=== PATIENT | female | born 1950 | race Caucasian/White ===

== ENCOUNTER 2017-04-14 08:46 | Emergency (ER) | payer MEDICARE, BC ==
[2017-04-14] MEDS: ONDANSETRON 4 MG INJ IV (09:05)
[2017-04-14] MEDS: HYDROmorphONE 1 MG/ML SYG IV ×2 (09:06→12:50)
[2017-04-14 09:22] LABS: ADD MAN DIFF? NO
[2017-04-14 09:26] LABS: BASOPHIL # 0.1 10^3/ul (0.0-0.1); EOSINOPHILS # 0.1 10^3/ul (0.0-0.5); EOSINOPHILS % 0.8 % (0.0-7.0); HEMATOCRIT 40.2 % (37.0-47.0); HEMOGLOBIN 12.9 g/dl (12.0-16.0); LYMPHOCYTES # 2.1 10^3/ul (0.8-2.9); LYMPHOCYTES % 23.4 % (15.0-51.0); MEAN CORPUSCULAR HEMOGLOBIN 27.9 pg (29.0-33.0); MEAN CORPUSCULAR HGB CONC 32.1 g/dl (32.0-37.0); MEAN CORPUSCULAR VOLUME 86.8 fl (82.0-101.0); MEAN PLATELET VOLUME 9.5 fl (7.4-10.4); MONOCYTE # 0.7 10^3/ul (0.3-0.9); MONOCYTES % 7.8 % (0.0-11.0); NEUTROPHIL # 5.9 10^3/ul (1.6-7.5); NEUTROPHILS % 66.4 % (39.0-77.0); PLATELET COUNT 354 10^3/UL (140-415); RED BLOOD COUNT 4.63 10^6/ul (4.20-5.40); RED CELL DISTRIBUTION WIDTH 13.5 % (11.5-14.5)
[2017-04-14 09:26] LABS: WHITE BLOOD COUNT 8.9 10^3/ul (4.8-10.8)
[2017-04-14 09:46] LABS: ALANINE AMINOTRANSFERASE 26 IU/L (13-69); ALBUMIN 4.3 g/dl (3.3-4.9); ALBUMIN/GLOBULIN RATIO 0.97; ALKALINE PHOSPHATASE 121 IU/L (42-121); ANION GAP 13 (8-16); ASPARTATE AMINO TRANSFERASE 40 IU/L (15-46); BILIRUBIN,INDIRECT 0.3 mg/dl (0-1.1); BILIRUBIN,TOTAL 0.3 mg/dl (0.2-1.3); BLOOD UREA NITROGEN 12 mg/dl (7-20); CARBON DIOXIDE 30 mmol/L (21-31); CHLORIDE 105 mmol/L (97-110); CREATININE 0.81 mg/dl (0.44-1.00); GLUCOSE 106 mg/dl (70-220); SODIUM 144 mmol/L (135-144); TOTAL PROTEIN 8.7 g/dl (6.1-8.1)
[2017-04-14 09:56] LABS: INR 2.11; PROTIME 24.2 Sec (11.9-14.9); PT RATIO 1.9
[2017-04-14 09:58] LABS: PARTIAL THROMBOPLASTIN TIME 63.1 Sec (25.0-35.0)
[2017-04-14 10:05] LABS: TROPONIN-I < 0.012 ng/ml (0.00-0.12)
[2017-04-14] MEDS: SOD CHLORIDE 0.9% 100 ML ×2 (11:20→11:22)
[2017-04-14] MEDS: IOHEXOL 100 ML ×2 (11:21→11:22)
== END 2017-04-14 13:35 | disposition home or self-care (01) ==
LOC: E/R 08:46
DX: C34.90 Malignant neoplasm of unspecified part of unspecified bronchus or lung (principal); R07.9 Chest pain, unspecified; Z79.01 Long term (current) use of anticoagulants
CPT/HCPCS: 36415; 71045; 71275; 80053; 84484; 85025; 85610; 85730; 93005; 93970; 96374; 96375; 96376; 99285-25

== ENCOUNTER 2017-04-26 06:05 | Inpatient (IN) | payer MEDICARE, BC ==
[2017-04-26] MEDS: ONDANSETRON 4 MG INJ IV ×2 (06:11→19:56)
[2017-04-26] MEDS: HYDROmorphONE 1 MG/ML SYG IV (06:11)
[2017-04-26] MEDS: SOD CHLORIDE 0.9% 1,000 ML IV (06:11)
[2017-04-26 07:41] LABS: ADD MAN DIFF? NO
[2017-04-26 07:49] LABS: WHITE BLOOD COUNT 9.4 10^3/ul (4.8-10.8)
[2017-04-26 07:49] LABS: BASOPHIL # 0.1 10^3/ul (0.0-0.1); BASOPHILS % 0.5 % (0.0-2.0); EOSINOPHILS % 0.3 % (0.0-7.0); HEMATOCRIT 34.5 % (37.0-47.0); HEMOGLOBIN 10.8 g/dl (12.0-16.0); LYMPHOCYTES # 0.7 10^3/ul (0.8-2.9); LYMPHOCYTES % 7.6 % (15.0-51.0); MEAN CORPUSCULAR HEMOGLOBIN 26.7 pg (29.0-33.0); MEAN CORPUSCULAR HGB CONC 31.3 g/dl (32.0-37.0); MEAN CORPUSCULAR VOLUME 85.2 fl (82.0-101.0); MEAN PLATELET VOLUME 9.4 fl (7.4-10.4); MONOCYTE # 0.7 10^3/ul (0.3-0.9); MONOCYTES % 7.7 % (0.0-11.0); NEUTROPHIL # 7.8 10^3/ul (1.6-7.5); NEUTROPHILS % 83.6 % (39.0-77.0); PLATELET COUNT 329 10^3/UL (140-415); RED BLOOD COUNT 4.05 10^6/ul (4.20-5.40); RED CELL DISTRIBUTION WIDTH 13.3 % (11.5-14.5)
[2017-04-26 08:04] LABS: LACTIC ACID 1.1 mmol/L (0.5-2.0)
[2017-04-26 08:07] LABS: ALANINE AMINOTRANSFERASE 27 IU/L (13-69); ALBUMIN 3.6 g/dl (3.3-4.9); ALKALINE PHOSPHATASE 120 IU/L (42-121); ANION GAP 17 (8-16); ASPARTATE AMINO TRANSFERASE 24 IU/L (15-46); BLOOD UREA NITROGEN 14 mg/dl (7-20); CALCIUM 9.8 mg/dl (8.4-10.2); CARBON DIOXIDE 30 mmol/L (21-31); CHLORIDE 100 mmol/L (97-110); CREATININE 0.89 mg/dl (0.44-1.00); GLUCOSE 135 mg/dl (70-220); LIPASE 65 U/L (23-300); POTASSIUM 4.2 mmol/L (3.5-5.1); SODIUM 143 mmol/L (135-144); TOTAL PROTEIN 7.2 g/dl (6.1-8.1)
[2017-04-26 08:10] LABS: INR 2.18; PROTIME 24.8 Sec (11.9-14.9); PT RATIO 1.9
[2017-04-26 08:11] LABS: PARTIAL THROMBOPLASTIN TIME 59.1 Sec (25.0-35.0)
[2017-04-26 08:18] LABS: TROPONIN-I < 0.012 ng/ml (0.00-0.12)
[2017-04-26] MEDS ORDERED: SOD CHLORIDE 0.9% 100 ML (08:18)
[2017-04-26] MEDS ORDERED: IOHEXOL 100 ML (08:18)
[2017-04-26] MEDS ORDERED: NITROGLYCERIN (SL) 0.4 MG TAB (08:48)
[2017-04-26] MEDS: ALBUTEROL 0.5% (NEB) 2.5 MG/0.5 ML AMP INH (09:03)
[2017-04-26] MEDS ORDERED: FUROSEMIDE 40 MG INJ (09:04)
[2017-04-26] MEDS: FUROSEMIDE 40 MG INJ IV (10:09)
[2017-04-26] MEDS: morphine 2 MG INJ IV (10:09)
[2017-04-26] MEDS: NITROGLYCERIN (SL) 0.4 MG TAB SL (10:09)
[2017-04-26] MEDS: NITROGLYCERIN 2% 1 GM OINT PKT TD (10:10)
[2017-04-26 10:19] LABS: ADD UMIC YES; UR ASCORBIC ACID NEGATIVE (NEGATIVE); UR BACTERIA FEW /HPF (NONE SEEN); UR BILIRUBIN (Dip) NEGATIVE (NEGATIVE); UR BLOOD (Dip) 2+ mg/dL (NEGATIVE); UR CLARITY CLEAR (CLEAR); UR COLOR STRAW (YELLOW); UR GLUCOSE (Dip) NEGATIVE (NEGATIVE); UR KETONES (Dip) NEGATIVE (NEGATIVE); UR LEUKOCYTE ESTERASE (Dip) NEGATIVE Leu/ul (NEGATIVE); UR MUCUS FEW /HPF (NONE SEEN); UR NITRITE (Dip) NEGATIVE (NEGATIVE); UR RBC 9 /HPF (0-5); UR SPECIFIC GRAVITY (Dip) 1.019 (1.003-1.030); UR TOTAL PROTEIN (Dip) 1+ mg/dl (NEGATIVE); UR UROBILINOGEN (Dip) NEGATIVE (NEGATIVE); UR WBC 1 /HPF (0-5)
[2017-04-26] MEDS: PIPER-TAZO 3.375 GM IV (PMX) 100 ML IVPB ×3 (10:30→22:46)
[2017-04-26 11:16] LABS: LACTIC ACID 1.6 mmol/L (0.5-2.0)
[2017-04-26] MEDS ORDERED: ONDANSETRON 4 MG INJ IV (12:00)
[2017-04-26] MEDS ORDERED: HYDROmorphONE 4 MG TAB PO (12:00)
[2017-04-26] MEDS ORDERED: ACETAMINOPHEN 325 MG TAB PO ×2 (12:00→12:30)
[2017-04-26] MEDS ORDERED: NACL 0.9% 3 ML SYG IV (12:30)
[2017-04-26] MEDS ORDERED: BISACODYL 10 MG SUPP PR (12:30)
[2017-04-26] MEDS: AMLODIPINE 10 MG TAB PO (14:00)
[2017-04-26] MEDS ORDERED: LIDOCAINE 5% PATCH TD (14:00)
[2017-04-26 15:55] LABS: IRON 13 ug/dl (35-150)
[2017-04-26] MEDS: METHYLPREDNISOLONE 40 MG INJ IV (15:55)
[2017-04-26 15:56] LABS: LACTIC ACID 0.9 mmol/L (0.5-2.0)
[2017-04-26 16:05] LABS: % IRON SATURATION 6 % SAT (22-52); TOTAL IRON BINDING CAPACITY 201 ug/dl (241-421)
[2017-04-26] MEDS: SENNA/DOCUSATE NA (8.6MG/50MG) TAB PO ×2 (16:22→20:10)
[2017-04-26] MEDS: ACETAMINOPHEN 1000MG/100ML IV 100 ML IVPB ×2 (16:22→20:00)
[2017-04-26] MEDS: PHYTONADIONE 10 MG/ML INJ IM (18:00)
[2017-04-26] MEDS ORDERED: [UNRECOGNIZED DRUG - OTHER] XX (19:00)
[2017-04-26] MEDS: HYDROmorphONE 0.5 MG/0.5 ML SYG IV (19:56)
[2017-04-26] MEDS: MAGNESIUM HYDROXIDE 30ML CUP PO (20:10)
[2017-04-26] MEDS: NA PHOSPHATE/BIPHOS 133 ML ENEMA PR (20:15)
[2017-04-26] MEDS ORDERED: METHADONE 10 MG TAB PO (21:00)
[2017-04-27] MEDS: ACETAMINOPHEN 1000MG/100ML IV 100 ML IVPB ×4 (02:00→20:55)
[2017-04-27] MEDS: PIPER-TAZO 3.375 GM IV (PMX) 100 ML IVPB ×3 (06:26→21:49)
[2017-04-27] MEDS: PANTOPRAZOLE (EC) 40 MG TAB PO (06:26)
[2017-04-27 07:11] LABS: ADD MAN DIFF? NO; BASOPHILS % 0.3 % (0.0-2.0); HEMATOCRIT 31.5 % (37.0-47.0); HEMOGLOBIN 9.9 g/dl (12.0-16.0); LYMPHOCYTES # 0.7 10^3/ul (0.8-2.9); LYMPHOCYTES % 11.9 % (15.0-51.0); MEAN CORPUSCULAR HGB CONC 31.4 g/dl (32.0-37.0); MEAN CORPUSCULAR VOLUME 86.1 fl (82.0-101.0); MEAN PLATELET VOLUME 9.3 fl (7.4-10.4); MONOCYTE # 0.4 10^3/ul (0.3-0.9); MONOCYTES % 6.2 % (0.0-11.0); NEUTROPHIL # 4.9 10^3/ul (1.6-7.5); NEUTROPHILS % 81.3 % (39.0-77.0); PLATELET COUNT 303 10^3/UL (140-415); RED BLOOD COUNT 3.66 10^6/ul (4.20-5.40); RED CELL DISTRIBUTION WIDTH 13.6 % (11.5-14.5)
[2017-04-27 07:25] LABS: ALBUMIN 3.5 g/dl (3.3-4.9); ANION GAP 14 (8-16); BLOOD UREA NITROGEN 13 mg/dl (7-20); CALCIUM 9.4 mg/dl (8.4-10.2); CARBON DIOXIDE 33 mmol/L (21-31); CHLORIDE 106 mmol/L (97-110); GLUCOSE 128 mg/dl (70-220); MAGNESIUM 2.2 mg/dl (1.7-2.5); PHOSPHORUS 4.7 mg/dl (2.5-4.9); POTASSIUM 4.1 mmol/L (3.5-5.1); SODIUM 149 mmol/L (135-144)
[2017-04-27 07:39] LABS: INR 2.43; PROTIME 27.1 Sec (11.9-14.9); PT RATIO 2.1
[2017-04-27] MEDS: METHYLPREDNISOLONE 40 MG INJ IV (08:51)
[2017-04-27] MEDS: SENNA/DOCUSATE NA (8.6MG/50MG) TAB PO ×2 (08:53→20:52)
[2017-04-27] MEDS: PAROXETINE 20 MG TAB PO (08:57)
[2017-04-27] MEDS ORDERED: NON-FORMULARY/PATIENT OWN MED (Vilazodone Hcl (Viibryd) 40 MG) PO (09:00)
[2017-04-27] MEDS: ONDANSETRON 4 MG INJ IV ×2 (10:07→20:52)
[2017-04-27] MEDS ORDERED: VILAZODONE 20 MG PO (11:00)
[2017-04-27] MEDS: FUROSEMIDE 20 MG INJ IV (11:39)
[2017-04-27] MEDS: PHYTONADIONE 10 MG/ML INJ IM (11:40)
[2017-04-27] MEDS: LIDOCAINE 5% PATCH TD (11:46)
[2017-04-27] MEDS: VILAZODONE 20 MG PO (12:34)
[2017-04-27] MEDS: METOPROLOL (XL) 25 MG TAB PO (13:14)
[2017-04-27] MEDS: AMLODIPINE 10 MG TAB PO (13:18)
[2017-04-28] MEDS: HYDROmorphONE 0.5 MG/0.5 ML SYG IV (00:16)
[2017-04-28] MEDS: ACETAMINOPHEN 1000MG/100ML IV 100 ML IVPB ×4 (02:50→20:14)
[2017-04-28] MEDS: PANTOPRAZOLE (EC) 40 MG TAB PO (06:01)
[2017-04-28] MEDS: PIPER-TAZO 3.375 GM IV (PMX) 100 ML IVPB ×3 (06:01→21:18)
[2017-04-28 06:04] LABS: ADD MAN DIFF? NO
[2017-04-28 06:07] LABS: WHITE BLOOD COUNT 7.5 10^3/ul (4.8-10.8)
[2017-04-28 06:07] LABS: BASOPHILS % 0.5 % (0.0-2.0); EOSINOPHILS % 0.3 % (0.0-7.0); HEMATOCRIT 31.4 % (37.0-47.0); HEMOGLOBIN 10.1 g/dl (12.0-16.0); LYMPHOCYTES # 1.5 10^3/ul (0.8-2.9); LYMPHOCYTES % 19.9 % (15.0-51.0); MEAN CORPUSCULAR HEMOGLOBIN 27.7 pg (29.0-33.0); MEAN CORPUSCULAR HGB CONC 32.2 g/dl (32.0-37.0); MEAN PLATELET VOLUME 9.2 fl (7.4-10.4); MONOCYTE # 0.7 10^3/ul (0.3-0.9); MONOCYTES % 9.3 % (0.0-11.0); NEUTROPHIL # 5.3 10^3/ul (1.6-7.5); NEUTROPHILS % 69.6 % (39.0-77.0); PLATELET COUNT 314 10^3/UL (140-415); RED BLOOD COUNT 3.65 10^6/ul (4.20-5.40); RED CELL DISTRIBUTION WIDTH 13.7 % (11.5-14.5)
[2017-04-28 06:27] LABS: INR 1.48; PROTIME 18.2 Sec (11.9-14.9); PT RATIO 1.4
[2017-04-28 07:05] LABS: ALBUMIN 3.3 g/dl (3.3-4.9); ANION GAP 12 (8-16); BLOOD UREA NITROGEN 13 mg/dl (7-20); CALCIUM 9.4 mg/dl (8.4-10.2); CARBON DIOXIDE 35 mmol/L (21-31); CHLORIDE 104 mmol/L (97-110); CREATININE 0.89 mg/dl (0.44-1.00); GLUCOSE 104 mg/dl (70-220); MAGNESIUM 2.1 mg/dl (1.7-2.5); PHOSPHORUS 3.2 mg/dl (2.5-4.9); POTASSIUM 3.7 mmol/L (3.5-5.1); SODIUM 147 mmol/L (135-144)
[2017-04-28] MEDS: PAROXETINE 20 MG TAB PO (09:00)
[2017-04-28] MEDS: METHYLPREDNISOLONE 40 MG INJ IV (09:28)
[2017-04-28] MEDS: FUROSEMIDE 20 MG INJ IV (09:29)
[2017-04-28] MEDS: AMLODIPINE 10 MG TAB PO (09:29)
[2017-04-28] MEDS: SENNA/DOCUSATE NA (8.6MG/50MG) TAB PO ×2 (09:29→20:13)
[2017-04-28] MEDS: METOPROLOL (XL) 25 MG TAB PO (09:30)
[2017-04-28] MEDS: VILAZODONE 20 MG PO (09:31)
[2017-04-28] MEDS: LIDOCAINE 5% PATCH TD (09:34)
[2017-04-28] MEDS: ALPRAZOLAM 0.25 MG TAB PO (10:30)
[2017-04-29] MEDS: HYDROmorphONE 0.5 MG/0.5 ML SYG IV ×2 (00:33→03:45)
[2017-04-29] MEDS: ONDANSETRON 4 MG INJ IV ×2 (00:37→07:38)
[2017-04-29] MEDS: ACETAMINOPHEN 1000MG/100ML IV 100 ML IVPB ×4 (01:56→19:54)
[2017-04-29] MEDS: MAGNESIUM HYDROXIDE 30ML CUP PO (03:49)
[2017-04-29] MEDS: PANTOPRAZOLE (EC) 40 MG TAB PO (05:26)
[2017-04-29] MEDS: PIPER-TAZO 3.375 GM IV (PMX) 100 ML IVPB ×3 (05:27→22:23)
[2017-04-29] MEDS: METHYLPREDNISOLONE 40 MG INJ IV (08:39)
[2017-04-29] MEDS: FUROSEMIDE 20 MG INJ IV (08:39)
[2017-04-29] MEDS: METOPROLOL (XL) 25 MG TAB PO (08:40)
[2017-04-29] MEDS: VILAZODONE 20 MG PO (08:40)
[2017-04-29] MEDS: AMLODIPINE 10 MG TAB PO (08:41)
[2017-04-29] MEDS: SENNA/DOCUSATE NA (8.6MG/50MG) TAB PO ×2 (08:41→19:54)
[2017-04-29] MEDS: PAROXETINE 20 MG TAB PO (08:41)
[2017-04-29] MEDS: LIDOCAINE 5% PATCH TD (08:42)
[2017-04-29 08:54] LABS: ADD MAN DIFF? NO
[2017-04-29 08:59] LABS: BASOPHILS % 0.5 % (0.0-2.0); EOSINOPHILS # 0.1 10^3/ul (0.0-0.5); HEMATOCRIT 34.2 % (37.0-47.0); HEMOGLOBIN 10.5 g/dl (12.0-16.0); LYMPHOCYTES # 1.6 10^3/ul (0.8-2.9); LYMPHOCYTES % 22.4 % (15.0-51.0); MEAN CORPUSCULAR HEMOGLOBIN 26.9 pg (29.0-33.0); MEAN CORPUSCULAR HGB CONC 30.7 g/dl (32.0-37.0); MEAN CORPUSCULAR VOLUME 87.5 fl (82.0-101.0); MEAN PLATELET VOLUME 8.9 fl (7.4-10.4); MONOCYTE # 0.6 10^3/ul (0.3-0.9); MONOCYTES % 8.6 % (0.0-11.0); NEUTROPHIL # 4.9 10^3/ul (1.6-7.5); NEUTROPHILS % 67.1 % (39.0-77.0); PLATELET COUNT 326 10^3/UL (140-415); RED BLOOD COUNT 3.91 10^6/ul (4.20-5.40)
[2017-04-29 08:59] LABS: WHITE BLOOD COUNT 7.3 10^3/ul (4.8-10.8)
[2017-04-29] MEDS: ALPRAZOLAM 0.25 MG TAB PO (09:03)
[2017-04-29 09:26] LABS: ALBUMIN 3.3 g/dl (3.3-4.9); ANION GAP 13 (8-16); BLOOD UREA NITROGEN 16 mg/dl (7-20); CALCIUM 9.5 mg/dl (8.4-10.2); CARBON DIOXIDE 36 mmol/L (21-31); CHLORIDE 103 mmol/L (97-110); CREATININE 0.86 mg/dl (0.44-1.00); GLUCOSE 107 mg/dl (70-220); MAGNESIUM 2.2 mg/dl (1.7-2.5); POTASSIUM 3.7 mmol/L (3.5-5.1); SODIUM 148 mmol/L (135-144)
[2017-04-29] MEDS: LIDOCAINE 1% (MPF) 5 ML VIAL (09:45)
[2017-04-29] MEDS: METHADONE (1 MG/ML 5 ML PO UD SYG) PO ×2 (10:26→19:54)
[2017-04-29 12:52] LABS: FLD TYPE THORACENTHESIS
[2017-04-29 12:52] LABS: FLD CLARITY HAZY; FLD COLOR YELLOW
[2017-04-29 12:54] LABS: FLD WBC 415 /cmm
[2017-04-29 12:55] LABS: FLD RBC 16000 /uL
[2017-04-29 13:07] LABS: FLD MN % (M) 95 %
[2017-04-29 13:08] LABS: FLD PMN % (M) 5 %
[2017-04-29 13:33] LABS: LACTATE DEHYDROGENASE 1212 IU/L (313-618)
[2017-04-29 13:33] LABS: TOTAL PROTEIN 3.4 g/dl (6.1-8.1)
[2017-04-29 13:34] LABS: FLUID GLUCOSE 101 mg/dl; FLUID TYPE THORACENTESIS FLUID
[2017-04-29 13:35] LABS: FLUID LD 1212 U/L; FLUID TYPE THORACENTESIS FLUID
[2017-04-29 13:36] LABS: FLUID TOTAL PROTEIN 3.4 g/dl
[2017-04-29] MEDS: WARFARIN 2 MG TAB PO (17:32)
[2017-04-30] MEDS: ACETAMINOPHEN 1000MG/100ML IV 100 ML IVPB ×4 (02:06→20:53)
[2017-04-30] MEDS: METHADONE (1 MG/ML 5 ML PO UD SYG) PO ×3 (02:07→18:16)
[2017-04-30] MEDS: HYDROmorphONE 0.5 MG/0.5 ML SYG IV (05:54)
[2017-04-30] MEDS: PIPER-TAZO 3.375 GM IV (PMX) 100 ML IVPB ×2 (05:57→14:25)
[2017-04-30] MEDS: PANTOPRAZOLE (EC) 40 MG TAB PO (05:57)
[2017-04-30 08:19] LABS: ADD MAN DIFF? NO
[2017-04-30] MEDS: SENNA/DOCUSATE NA (8.6MG/50MG) TAB PO ×2 (08:34→20:58)
[2017-04-30] MEDS: FUROSEMIDE 20 MG INJ IV (08:34)
[2017-04-30] MEDS: METHYLPREDNISOLONE 40 MG INJ IV ×2 (08:34→20:54)
[2017-04-30] MEDS: METOPROLOL (XL) 25 MG TAB PO (08:35)
[2017-04-30] MEDS: PAROXETINE 20 MG TAB PO (08:35)
[2017-04-30] MEDS: AMLODIPINE 10 MG TAB PO (08:35)
[2017-04-30] MEDS: VILAZODONE 20 MG PO (08:36)
[2017-04-30 08:37] LABS: WHITE BLOOD COUNT 7.2 10^3/ul (4.8-10.8)
[2017-04-30 08:37] LABS: BASOPHIL # 0.1 10^3/ul (0.0-0.1); BASOPHILS % 0.7 % (0.0-2.0); EOSINOPHILS # 0.1 10^3/ul (0.0-0.5); EOSINOPHILS % 1.2 % (0.0-7.0); HEMATOCRIT 35.4 % (37.0-47.0); LYMPHOCYTES # 1.9 10^3/ul (0.8-2.9); LYMPHOCYTES % 26.4 % (15.0-51.0); MEAN CORPUSCULAR HGB CONC 31.1 g/dl (32.0-37.0); MEAN PLATELET VOLUME 8.8 fl (7.4-10.4); MONOCYTE # 0.6 10^3/ul (0.3-0.9); MONOCYTES % 7.9 % (0.0-11.0); NEUTROPHIL # 4.6 10^3/ul (1.6-7.5); NEUTROPHILS % 63.4 % (39.0-77.0); PLATELET COUNT 302 10^3/UL (140-415); RED BLOOD COUNT 4.07 10^6/ul (4.20-5.40); RED CELL DISTRIBUTION WIDTH 13.7 % (11.5-14.5)
[2017-04-30 08:46] LABS: ANION GAP 11 (8-16); BLOOD UREA NITROGEN 15 mg/dl (7-20); CALCIUM 9.2 mg/dl (8.4-10.2); CARBON DIOXIDE 36 mmol/L (21-31); CHLORIDE 102 mmol/L (97-110); CREATININE 0.88 mg/dl (0.44-1.00); GLUCOSE 94 mg/dl (70-220); MAGNESIUM 2.1 mg/dl (1.7-2.5); PHOSPHORUS 3.1 mg/dl (2.5-4.9); POTASSIUM 3.5 mmol/L (3.5-5.1); SODIUM 145 mmol/L (135-144)
[2017-04-30 08:56] LABS: INR 1.12; PROTIME 14.6 Sec (11.9-14.9); PT RATIO 1.1
[2017-04-30] MEDS ORDERED: ALBUTEROL/IPRATROPIUM (NEB) 3 ML AMP HHN (16:00)
[2017-04-30] MEDS: WARFARIN 2 MG TAB PO (16:26)
[2017-04-30] MEDS: LISINOPRIL 10 MG TAB PO (16:27)
[2017-04-30] MEDS: ALBUTEROL/IPRATROPIUM (NEB) 3 ML AMP HHN (19:53)
[2017-04-30] MEDS: ENOXAPARIN 80 MG/0.8 ML SYG SC (20:59)
[2017-05-01] MEDS: ACETAMINOPHEN 1000MG/100ML IV 100 ML IVPB ×4 (02:27→21:14)
[2017-05-01] MEDS: METHADONE (1 MG/ML 5 ML PO UD SYG) PO ×3 (02:27→18:40)
[2017-05-01] MEDS: HYDROmorphONE 0.5 MG/0.5 ML SYG IV (04:05)
[2017-05-01] MEDS: PANTOPRAZOLE (EC) 40 MG TAB PO (06:52)
[2017-05-01] MEDS: ALBUTEROL/IPRATROPIUM (NEB) 3 ML AMP HHN ×3 (08:13→20:23)
[2017-05-01 09:00] LABS: ADD MAN DIFF? NO
[2017-05-01] MEDS ORDERED: FUROSEMIDE 20 MG TAB PO (09:00)
[2017-05-01 09:08] LABS: WHITE BLOOD COUNT 7.4 10^3/ul (4.8-10.8)
[2017-05-01 09:08] LABS: BASOPHILS % 0.1 % (0.0-2.0); HEMATOCRIT 37.8 % (37.0-47.0); HEMOGLOBIN 11.9 g/dl (12.0-16.0); LYMPHOCYTES # 1.2 10^3/ul (0.8-2.9); LYMPHOCYTES % 15.8 % (15.0-51.0); MEAN CORPUSCULAR HEMOGLOBIN 27.2 pg (29.0-33.0); MEAN CORPUSCULAR HGB CONC 31.5 g/dl (32.0-37.0); MEAN CORPUSCULAR VOLUME 86.5 fl (82.0-101.0); MONOCYTE # 0.3 10^3/ul (0.3-0.9); MONOCYTES % 4.1 % (0.0-11.0); NEUTROPHIL # 5.9 10^3/ul (1.6-7.5); NEUTROPHILS % 79.6 % (39.0-77.0); PLATELET COUNT 354 10^3/UL (140-415); RED BLOOD COUNT 4.37 10^6/ul (4.20-5.40); RED CELL DISTRIBUTION WIDTH 13.7 % (11.5-14.5)
[2017-05-01] MEDS: VILAZODONE 20 MG PO (09:09)
[2017-05-01] MEDS: METHYLPREDNISOLONE 40 MG INJ IV ×2 (09:09→21:14)
[2017-05-01] MEDS: SENNA/DOCUSATE NA (8.6MG/50MG) TAB PO ×2 (09:10→21:15)
[2017-05-01] MEDS: FUROSEMIDE 40 MG TAB PO (09:10)
[2017-05-01] MEDS: PAROXETINE 20 MG TAB PO (09:10)
[2017-05-01] MEDS: AMLODIPINE 10 MG TAB PO (09:10)
[2017-05-01] MEDS: METOPROLOL (XL) 25 MG TAB PO (09:11)
[2017-05-01] MEDS: LISINOPRIL 10 MG TAB PO ×2 (09:12→10:33)
[2017-05-01] MEDS: ENOXAPARIN 80 MG/0.8 ML SYG SC ×2 (09:17→21:26)
[2017-05-01 09:25] LABS: INR 1.23; PROTIME 15.7 Sec (11.9-14.9); PT RATIO 1.2
[2017-05-01 10:11] LABS: ANION GAP 13 (8-16); BLOOD UREA NITROGEN 12 mg/dl (7-20); CALCIUM 9.6 mg/dl (8.4-10.2); CARBON DIOXIDE 32 mmol/L (21-31); CHLORIDE 103 mmol/L (97-110); CREATININE 0.75 mg/dl (0.44-1.00); GLUCOSE 117 mg/dl (70-220); MAGNESIUM 2.1 mg/dl (1.7-2.5); PHOSPHORUS 3.7 mg/dl (2.5-4.9); POTASSIUM 3.8 mmol/L (3.5-5.1); SODIUM 144 mmol/L (135-144)
[2017-05-01] MEDS: WARFARIN 2 MG TAB PO (16:18)
[2017-05-02] MEDS: ACETAMINOPHEN 1000MG/100ML IV 100 ML IVPB ×4 (02:01→20:10)
[2017-05-02] MEDS: METHADONE (1 MG/ML 5 ML PO UD SYG) PO ×3 (02:52→20:10)
[2017-05-02] MEDS: PANTOPRAZOLE (EC) 40 MG TAB PO (06:20)
[2017-05-02] MEDS: ALBUTEROL/IPRATROPIUM (NEB) 3 ML AMP HHN ×3 (07:44→20:20)
[2017-05-02 08:14] LABS: INR 1.45; PROTIME 17.9 Sec (11.9-14.9); PT RATIO 1.4
[2017-05-02] MEDS: PAROXETINE 20 MG TAB PO (09:01)
[2017-05-02] MEDS: METHYLPREDNISOLONE 40 MG INJ IV ×2 (09:01→20:11)
[2017-05-02] MEDS: METOPROLOL (XL) 25 MG TAB PO (09:02)
[2017-05-02] MEDS: LISINOPRIL 20 MG TAB PO (09:03)
[2017-05-02] MEDS: FUROSEMIDE 40 MG TAB PO (09:03)
[2017-05-02] MEDS: AMLODIPINE 10 MG TAB PO (09:03)
[2017-05-02] MEDS: SENNA/DOCUSATE NA (8.6MG/50MG) TAB PO ×2 (09:04→20:10)
[2017-05-02] MEDS: VILAZODONE 20 MG PO (09:04)
[2017-05-02] MEDS: ENOXAPARIN 80 MG/0.8 ML SYG SC ×2 (09:09→20:18)
[2017-05-02] MEDS ORDERED: METOPROLOL (XL) 25 MG TAB PO (12:00)
[2017-05-02] MEDS: WARFARIN 5 MG TAB PO (16:47)
[2017-05-02] MEDS: morphine 2 MG INJ IV (22:21)
[2017-05-03] MEDS: ACETAMINOPHEN 1000MG/100ML IV 100 ML IVPB ×4 (02:26→20:34)
[2017-05-03] MEDS: METHADONE (1 MG/ML 5 ML PO UD SYG) PO ×3 (02:26→18:15)
[2017-05-03] MEDS: PANTOPRAZOLE (EC) 40 MG TAB PO (06:19)
[2017-05-03 07:08] LABS: INR 1.71; PROTIME 20.4 Sec (11.9-14.9); PT RATIO 1.6
[2017-05-03] MEDS: ALBUTEROL/IPRATROPIUM (NEB) 3 ML AMP HHN ×3 (08:29→20:41)
[2017-05-03] MEDS ORDERED: METOPROLOL (XL) 25 MG TAB PO (09:00)
[2017-05-03] MEDS: VILAZODONE 20 MG PO (09:02)
[2017-05-03] MEDS: METHYLPREDNISOLONE 40 MG INJ IV ×2 (09:14→20:38)
[2017-05-03] MEDS: FUROSEMIDE 40 MG TAB PO (09:14)
[2017-05-03] MEDS: LISINOPRIL 20 MG TAB PO (09:15)
[2017-05-03] MEDS: METOPROLOL (XL) 25 MG TAB PO (09:15)
[2017-05-03] MEDS: ENOXAPARIN 80 MG/0.8 ML SYG SC ×2 (09:15→20:35)
[2017-05-03] MEDS: SENNA/DOCUSATE NA (8.6MG/50MG) TAB PO ×2 (09:16→20:39)
[2017-05-03] MEDS: PAROXETINE 20 MG TAB PO (09:16)
[2017-05-03] MEDS: AMLODIPINE 10 MG TAB PO (09:16)
[2017-05-03] MEDS: WARFARIN 5 MG TAB PO (18:15)
[2017-05-04] MEDS: ACETAMINOPHEN 1000MG/100ML IV 100 ML IVPB ×4 (01:39→21:05)
[2017-05-04] MEDS: PANTOPRAZOLE (EC) 40 MG TAB PO (05:34)
[2017-05-04] MEDS: METHADONE (1 MG/ML 5 ML PO UD SYG) PO ×3 (05:35→18:30)
[2017-05-04 07:06] LABS: INR 2.17; PROTIME 24.7 Sec (11.9-14.9); PT RATIO 1.9
[2017-05-04] MEDS: ALBUTEROL/IPRATROPIUM (NEB) 3 ML AMP HHN ×3 (08:28→19:57)
[2017-05-04] MEDS: PAROXETINE 20 MG TAB PO (09:00)
[2017-05-04] MEDS: VILAZODONE 20 MG PO (09:18)
[2017-05-04] MEDS: predniSONE 20 MG TAB PO (09:19)
[2017-05-04] MEDS: METOPROLOL (XL) 50 MG TAB PO (09:23)
[2017-05-04] MEDS: LISINOPRIL 20 MG TAB PO (09:24)
[2017-05-04] MEDS: FUROSEMIDE 40 MG TAB PO (09:24)
[2017-05-04] MEDS: AMLODIPINE 10 MG TAB PO (09:25)
[2017-05-04] MEDS: SENNA/DOCUSATE NA (8.6MG/50MG) TAB PO ×2 (09:26→21:04)
[2017-05-04] MEDS: WARFARIN 2 MG TAB PO (18:30)
[2017-05-04] MEDS: oxyCODONE 5 MG TAB PO (23:06)
[2017-05-05] MEDS: ACETAMINOPHEN 1000MG/100ML IV 100 ML IVPB ×4 (02:29→21:01)
[2017-05-05] MEDS: METHADONE (1 MG/ML 5 ML PO UD SYG) PO ×3 (03:00→19:39)
[2017-05-05 05:45] LABS: ADD MAN DIFF? NO
[2017-05-05 05:47] LABS: BASOPHILS % 0.1 % (0.0-2.0); EOSINOPHILS # 0.1 10^3/ul (0.0-0.5); EOSINOPHILS % 0.4 % (0.0-7.0); HEMATOCRIT 38.1 % (37.0-47.0); LYMPHOCYTES # 2.7 10^3/ul (0.8-2.9); LYMPHOCYTES % 20.9 % (15.0-51.0); MEAN CORPUSCULAR HGB CONC 31.5 g/dl (32.0-37.0); MEAN CORPUSCULAR VOLUME 85.6 fl (82.0-101.0); MEAN PLATELET VOLUME 9.1 fl (7.4-10.4); MONOCYTE # 1.1 10^3/ul (0.3-0.9); MONOCYTES % 8.3 % (0.0-11.0); NEUTROPHIL # 9.2 10^3/ul (1.6-7.5); NEUTROPHILS % 69.8 % (39.0-77.0); PLATELET COUNT 353 10^3/UL (140-415); RED BLOOD COUNT 4.45 10^6/ul (4.20-5.40); RED CELL DISTRIBUTION WIDTH 14.9 % (11.5-14.5)
[2017-05-05 05:47] LABS: WHITE BLOOD COUNT 13.1 10^3/ul (4.8-10.8)
[2017-05-05] MEDS: PANTOPRAZOLE (EC) 40 MG TAB PO (06:30)
[2017-05-05 06:35] LABS: ANION GAP 13 (8-16); BLOOD UREA NITROGEN 20 mg/dl (7-20); CALCIUM 9.8 mg/dl (8.4-10.2); CARBON DIOXIDE 31 mmol/L (21-31); CHLORIDE 104 mmol/L (97-110); CREATININE 0.81 mg/dl (0.44-1.00); GLUCOSE 94 mg/dl (70-220); MAGNESIUM 2.2 mg/dl (1.7-2.5); PHOSPHORUS 4.3 mg/dl (2.5-4.9); POTASSIUM 3.6 mmol/L (3.5-5.1); SODIUM 144 mmol/L (135-144)
[2017-05-05 06:45] LABS: INR 2.88; PT RATIO 2.4
[2017-05-05] MEDS: ALBUTEROL/IPRATROPIUM (NEB) 3 ML AMP HHN ×3 (07:25→20:02)
[2017-05-05] MEDS: VILAZODONE 20 MG PO (08:38)
[2017-05-05] MEDS: METOPROLOL (XL) 50 MG TAB PO (08:39)
[2017-05-05] MEDS: FUROSEMIDE 40 MG TAB PO (08:40)
[2017-05-05] MEDS: SENNA/DOCUSATE NA (8.6MG/50MG) TAB PO ×2 (08:40→21:01)
[2017-05-05] MEDS: AMLODIPINE 10 MG TAB PO (08:40)
[2017-05-05] MEDS: predniSONE 20 MG TAB PO (08:40)
[2017-05-05] MEDS: LISINOPRIL 20 MG TAB PO (08:41)
[2017-05-05] MEDS: PAROXETINE 20 MG TAB PO (08:41)
[2017-05-05] MEDS: WARFARIN 2 MG TAB PO (17:27)
[2017-05-06] MEDS: ACETAMINOPHEN 1000MG/100ML IV 100 ML IVPB ×2 (02:42→08:42)
[2017-05-06] MEDS: METHADONE (1 MG/ML 5 ML PO UD SYG) PO ×2 (02:43→12:22)
[2017-05-06] MEDS: PANTOPRAZOLE (EC) 40 MG TAB PO (05:42)
[2017-05-06 07:16] LABS: INR 3.04; PROTIME 32.4 Sec (11.9-14.9); PT RATIO 2.5
[2017-05-06] MEDS: ALBUTEROL/IPRATROPIUM (NEB) 3 ML AMP HHN (08:34)
[2017-05-06] MEDS: PAROXETINE 20 MG TAB PO (08:39)
[2017-05-06] MEDS: AMLODIPINE 10 MG TAB PO (08:39)
[2017-05-06] MEDS: FUROSEMIDE 40 MG TAB PO (08:39)
[2017-05-06] MEDS: METOPROLOL (XL) 50 MG TAB PO (08:39)
[2017-05-06] MEDS: SENNA/DOCUSATE NA (8.6MG/50MG) TAB PO (08:39)
[2017-05-06] MEDS: VILAZODONE 20 MG PO (08:40)
[2017-05-06] MEDS: predniSONE 20 MG TAB PO (08:40)
[2017-05-06] MEDS: LISINOPRIL 20 MG TAB PO (08:40)
== END 2017-05-06 13:45 | disposition home or self-care (01) | DRG 180 ==
LOC: E/R 06:05 → MS2 05-02 22:29 → TEL 11:36
PROC: 5A09357 Assistance with Respiratory Ventilation, Less than 24 Consecutive Hours, Continuous Positive Airway Pressure (ICD-10-PCS; 2017-04-26)
PROC: 0W9B3ZX Drainage of Left Pleural Cavity, Percutaneous Approach, Diagnostic (ICD-10-PCS; principal; 2017-04-29)
DX: C34.01 Malignant neoplasm of right main bronchus (principal); J96.21 Acute and chronic respiratory failure with hypoxia; C78.7 Secondary malignant neoplasm of liver and intrahepatic bile duct; C79.51 Secondary malignant neoplasm of bone; D68.59 Other primary thrombophilia; J90 Pleural effusion, not elsewhere classified; M48.54XA Collapsed vertebra, not elsewhere classified, thoracic region, initial encounter for fracture; C34.31 Malignant neoplasm of lower lobe, right bronchus or lung; C34.2 Malignant neoplasm of middle lobe, bronchus or lung; Z66 Do not resuscitate; K80.20 Calculus of gallbladder without cholecystitis without obstruction; K59.00 Constipation, unspecified; D64.9 Anemia, unspecified; I10 Essential (primary) hypertension; D63.8 Anemia in other chronic diseases classified elsewhere
CPT/HCPCS: 36415; 71045; 71275; 74177; 76705; 76942; 80048; 80053; 80069; 81001; 82040; 82945; 83540; 83605; 83615; 83690; 83735; 84100; 84155; 84157; 84484; 85025; 85610; 85730; 87040; 87070; 87102; 87116; 89051; 94640; 94644; 94660; 94664; 96365; 96366; 96368; 96375; 97116; 97161; 97165; 97530; 97535; 99285-25; J1940

== ENCOUNTER 2017-05-21 11:47 | Inpatient (IN) | payer MEDICARE, BC ==
[2017-05-21 13:35] LABS: ADD MAN DIFF? NO
[2017-05-21 13:40] LABS: WHITE BLOOD COUNT 9.3 10^3/ul (4.8-10.8)
[2017-05-21 13:40] LABS: BASOPHILS % 0.3 % (0.0-2.0); EOSINOPHILS % 0.2 % (0.0-7.0); HEMATOCRIT 36.1 % (37.0-47.0); HEMOGLOBIN 11.6 g/dl (12.0-16.0); LYMPHOCYTES # 0.9 10^3/ul (0.8-2.9); LYMPHOCYTES % 9.5 % (15.0-51.0); MEAN CORPUSCULAR HEMOGLOBIN 26.2 pg (29.0-33.0); MEAN CORPUSCULAR HGB CONC 32.1 g/dl (32.0-37.0); MEAN CORPUSCULAR VOLUME 81.5 fl (82.0-101.0); MONOCYTE # 0.4 10^3/ul (0.3-0.9); MONOCYTES % 4.3 % (0.0-11.0); NEUTROPHILS % 85.5 % (39.0-77.0); PLATELET COUNT 301 10^3/UL (140-415); RED BLOOD COUNT 4.43 10^6/ul (4.20-5.40); RED CELL DISTRIBUTION WIDTH 15.4 % (11.5-14.5)
[2017-05-21] MEDS: ALBUTEROL 0.083% (NEB) 2.5 MG/3 ML AMP NEB (13:46)
[2017-05-21] MEDS: IPRATROPIUM (NEB) 0.5 MG/2.5 ML AMP NEB (13:46)
[2017-05-21 14:03] LABS: LACTIC ACID 1.2 mmol/L (0.5-2.0)
[2017-05-21 14:08] LABS: ALANINE AMINOTRANSFERASE 29 IU/L (13-69); ALBUMIN 3.6 g/dl (3.3-4.9); ALBUMIN/GLOBULIN RATIO 0.94; ALKALINE PHOSPHATASE 169 IU/L (42-121); AMYLASE 51 U/L (11-123); ANION GAP 15 (8-16); ASPARTATE AMINO TRANSFERASE 31 IU/L (15-46); BILIRUBIN,INDIRECT 0.2 mg/dl (0-1.1); BILIRUBIN,TOTAL 0.2 mg/dl (0.2-1.3); BLOOD UREA NITROGEN 16 mg/dl (7-20); CALCIUM 9.5 mg/dl (8.4-10.2); CARBON DIOXIDE 29 mmol/L (21-31); CHLORIDE 101 mmol/L (97-110); CREATININE 0.92 mg/dl (0.44-1.00); GLUCOSE 105 mg/dl (70-220); LIPASE 57 U/L (23-300); SODIUM 141 mmol/L (135-144); TOTAL PROTEIN 7.4 g/dl (6.1-8.1)
[2017-05-21 14:13] LABS: INR 5.63; PT RATIO 4.1
[2017-05-21 14:16] LABS: B-TYPE NATRIURETIC PEPTIDE 488 PG/ML (0-125)
[2017-05-21] MEDS: ONDANSETRON 4 MG INJ IV ×2 (14:18→14:31)
[2017-05-21] MEDS: morphine 4 MG/ML VIAL IV (14:18)
[2017-05-21] MEDS: FUROSEMIDE 40 MG INJ IV (14:18)
[2017-05-21 14:19] LABS: PARTIAL THROMBOPLASTIN TIME 131.2 Sec (25.0-35.0); TROPONIN-I < 0.012 ng/ml (0.00-0.12)
[2017-05-21] MEDS ORDERED: METHADONE (1 MG/ML 5 ML PO UD SYG) PO (14:30)
[2017-05-21] MEDS: HYDROmorphONE 0.5 MG/0.5 ML SYG IV (14:31)
[2017-05-21 15:21] LABS: INR 5.27; PROTIME 50.3 Sec (11.9-14.9); PT RATIO 3.9
[2017-05-21 15:29] LABS: PARTIAL THROMBOPLASTIN TIME 122.2 Sec (25.0-35.0)
[2017-05-21 15:57] LABS: ADD UMIC YES; UR ASCORBIC ACID NEGATIVE (NEGATIVE); UR BILIRUBIN (Dip) NEGATIVE (NEGATIVE); UR BLOOD (Dip) 2+ mg/dL (NEGATIVE); UR CLARITY CLEAR (CLEAR); UR COLOR STRAW (YELLOW); UR GLUCOSE (Dip) NEGATIVE (NEGATIVE); UR KETONES (Dip) NEGATIVE (NEGATIVE); UR LEUKOCYTE ESTERASE (Dip) NEGATIVE Leu/ul (NEGATIVE); UR NITRITE (Dip) NEGATIVE (NEGATIVE); UR RBC 11 /HPF (0-5); UR SPECIFIC GRAVITY (Dip) 1.005 (1.003-1.030); UR TOTAL PROTEIN (Dip) NEGATIVE (NEGATIVE); UR UROBILINOGEN (Dip) NEGATIVE (NEGATIVE); UR WBC 1 /HPF (0-5)
[2017-05-21] MEDS ORDERED: oxyCODONE 5 MG TAB PO (16:00)
[2017-05-21] MEDS ORDERED: QUETIAPINE 100 MG TAB PO (16:00)
[2017-05-21] MEDS ORDERED: BISACODYL 10 MG SUPP PR (16:00)
[2017-05-21] MEDS ORDERED: NACL 0.9% 3 ML SYG IV (16:00)
[2017-05-21] MEDS ORDERED: METHADONE 5 MG TAB PO (16:00)
[2017-05-21] MEDS ORDERED: LORAZEPAM 2 MG INJ IV (16:00)
[2017-05-21] MEDS: SOD CHLORIDE 0.9% 1,000 ML IV (16:18)
[2017-05-21] MEDS: FUROSEMIDE 20 MG INJ IV (18:00)
[2017-05-21] MEDS: PHYTONADIONE 10 MG in DEXTROSE 5% 50 ML IVPB (21:48)
[2017-05-21] MEDS: METHADONE (1 MG/1 ML PO SYG) PO (22:16)
[2017-05-21] MEDS: SENNA/DOCUSATE NA (8.6MG/50MG) TAB PO (22:16)
[2017-05-21] MEDS: ACETAMINOPHEN 500 MG TAB PO (23:56)
[2017-05-22] MEDS: oxyCODONE 5 MG TAB PO ×3 (06:15→16:50)
[2017-05-22] MEDS: FUROSEMIDE 20 MG INJ IV (06:20)
[2017-05-22 07:26] LABS: ADD MAN DIFF? NO
[2017-05-22 07:30] LABS: BASOPHILS % 0.6 % (0.0-2.0); EOSINOPHILS # 0.1 10^3/ul (0.0-0.5); EOSINOPHILS % 1.1 % (0.0-7.0); HEMATOCRIT 35.9 % (37.0-47.0); HEMOGLOBIN 11.2 g/dl (12.0-16.0); LYMPHOCYTES # 1.1 10^3/ul (0.8-2.9); MEAN CORPUSCULAR HEMOGLOBIN 25.9 pg (29.0-33.0); MEAN CORPUSCULAR HGB CONC 31.2 g/dl (32.0-37.0); MEAN CORPUSCULAR VOLUME 83.1 fl (82.0-101.0); MEAN PLATELET VOLUME 9.2 fl (7.4-10.4); MONOCYTE # 0.5 10^3/ul (0.3-0.9); NEUTROPHIL # 5.4 10^3/ul (1.6-7.5); PLATELET COUNT 309 10^3/UL (140-415); RED BLOOD COUNT 4.32 10^6/ul (4.20-5.40); RED CELL DISTRIBUTION WIDTH 15.5 % (11.5-14.5)
[2017-05-22 07:30] LABS: WHITE BLOOD COUNT 7.1 10^3/ul (4.8-10.8)
[2017-05-22 07:51] LABS: INR 1.42; PROTIME 17.6 Sec (11.9-14.9); PT RATIO 1.4
[2017-05-22 07:53] LABS: ANION GAP 15 (8-16); BLOOD UREA NITROGEN 13 mg/dl (7-20); CALCIUM 9.6 mg/dl (8.4-10.2); CARBON DIOXIDE 33 mmol/L (21-31); CHLORIDE 101 mmol/L (97-110); CREATININE 1.01 mg/dl (0.44-1.00); GLUCOSE 111 mg/dl (70-220); POTASSIUM 4.2 mmol/L (3.5-5.1); SODIUM 145 mmol/L (135-144)
[2017-05-22] MEDS: AMLODIPINE 10 MG TAB PO (09:00)
[2017-05-22] MEDS ORDERED: VALERIAN ROOT 450 MG PO (09:00)
[2017-05-22] MEDS: LISINOPRIL 20 MG TAB PO (09:00)
[2017-05-22] MEDS: METOPROLOL (XL) 50 MG TAB PO (09:00)
[2017-05-22] MEDS: PANTOPRAZOLE (EC) 40 MG TAB PO (09:46)
[2017-05-22] MEDS: PAROXETINE 20 MG TAB PO (09:46)
[2017-05-22] MEDS: SENNA/DOCUSATE NA (8.6MG/50MG) TAB PO ×2 (09:46→21:13)
[2017-05-22] MEDS: [UNRECOGNIZED DRUG - REMARK] XX ×2 (14:30→21:14)
[2017-05-22] MEDS: METHADONE (1 MG/1 ML PO SYG) PO ×2 (15:41→21:13)
[2017-05-22] MEDS: WARFARIN 2 MG TAB PO (21:14)
[2017-05-23] MEDS: [UNRECOGNIZED DRUG - REMARK] XX ×3 (02:30→14:30)
[2017-05-23] MEDS: oxyCODONE 5 MG TAB PO ×5 (03:24→22:16)
[2017-05-23] MEDS: ONDANSETRON 4 MG INJ IV ×4 (03:33→22:15)
[2017-05-23] MEDS: METHADONE (1 MG/1 ML PO SYG) PO ×3 (05:42→22:15)
[2017-05-23 08:23] LABS: PROTIME 16.4 Sec (11.9-14.9); PT RATIO 1.3
[2017-05-23] MEDS: FUROSEMIDE 40 MG INJ IV ×2 (08:27→17:49)
[2017-05-23] MEDS: SENNA/DOCUSATE NA (8.6MG/50MG) TAB PO ×2 (08:27→21:08)
[2017-05-23] MEDS: AMLODIPINE 10 MG TAB PO (08:27)
[2017-05-23] MEDS: LISINOPRIL 20 MG TAB PO (08:28)
[2017-05-23] MEDS: PAROXETINE 20 MG TAB PO (08:28)
[2017-05-23] MEDS: METOPROLOL (XL) 50 MG TAB PO (08:28)
[2017-05-23] MEDS: PANTOPRAZOLE (EC) 40 MG TAB PO (08:28)
[2017-05-23 08:46] LABS: ANION GAP 15 (8-16); BLOOD UREA NITROGEN 11 mg/dl (7-20); CALCIUM 9.7 mg/dl (8.4-10.2); CARBON DIOXIDE 33 mmol/L (21-31); CHLORIDE 102 mmol/L (97-110); CREATININE 0.89 mg/dl (0.44-1.00); GLUCOSE 102 mg/dl (70-220); POTASSIUM 4.7 mmol/L (3.5-5.1); SODIUM 145 mmol/L (135-144)
[2017-05-23] MEDS: WARFARIN 2 MG TAB PO (17:45)
[2017-05-23] MEDS ORDERED: ONDANSETRON 4 MG INJ IV (18:00)
[2017-05-23] MEDS ORDERED: FUROSEMIDE 40 MG INJ IV (21:00)
[2017-05-23] MEDS: METOPROLOL 25 MG TAB PO (21:15)
[2017-05-24] MEDS: oxyCODONE 5 MG TAB PO ×3 (02:40→16:15)
[2017-05-24] MEDS: FUROSEMIDE 40 MG INJ IV ×2 (06:36→18:29)
[2017-05-24] MEDS: ONDANSETRON 4 MG INJ IV ×4 (06:36→21:28)
[2017-05-24] MEDS: METHADONE (1 MG/1 ML PO SYG) PO ×3 (06:38→21:34)
[2017-05-24 08:06] LABS: INR 1.98; PT RATIO 1.8
[2017-05-24] MEDS: METOPROLOL 25 MG TAB PO ×2 (09:00→21:36)
[2017-05-24] MEDS: LISINOPRIL 20 MG TAB PO (09:00)
[2017-05-24] MEDS: AMLODIPINE 10 MG TAB PO (09:00)
[2017-05-24] MEDS: ACETAMINOPHEN 500 MG TAB PO ×2 (10:48→21:30)
[2017-05-24] MEDS: PANTOPRAZOLE (EC) 40 MG TAB PO (10:48)
[2017-05-24] MEDS: SENNA/DOCUSATE NA (8.6MG/50MG) TAB PO ×2 (10:48→21:33)
[2017-05-24] MEDS: PAROXETINE 20 MG TAB PO (10:48)
[2017-05-24] MEDS: FUROSEMIDE 20 MG INJ IV (13:43)
[2017-05-24] MEDS: WARFARIN 2 MG TAB PO (16:15)
[2017-05-25] MEDS: oxyCODONE 5 MG TAB PO ×2 (00:24→16:44)
[2017-05-25] MEDS: METHADONE (1 MG/1 ML PO SYG) PO (06:11)
[2017-05-25] MEDS: ONDANSETRON 4 MG INJ IV ×4 (06:11→21:21)
[2017-05-25] MEDS: FUROSEMIDE 40 MG INJ IV ×2 (06:12→17:22)
[2017-05-25 06:28] LABS: ADD MAN DIFF? NO
[2017-05-25 06:30] LABS: WHITE BLOOD COUNT 7.4 10^3/ul (4.8-10.8)
[2017-05-25 06:30] LABS: BASOPHIL # 0.1 10^3/ul (0.0-0.1); BASOPHILS % 0.8 % (0.0-2.0); EOSINOPHILS # 0.1 10^3/ul (0.0-0.5); EOSINOPHILS % 1.5 % (0.0-7.0); HEMATOCRIT 34.3 % (37.0-47.0); HEMOGLOBIN 10.8 g/dl (12.0-16.0); LYMPHOCYTES # 1.8 10^3/ul (0.8-2.9); LYMPHOCYTES % 24.1 % (15.0-51.0); MEAN CORPUSCULAR HEMOGLOBIN 26.1 pg (29.0-33.0); MEAN CORPUSCULAR HGB CONC 31.5 g/dl (32.0-37.0); MEAN CORPUSCULAR VOLUME 82.9 fl (82.0-101.0); MEAN PLATELET VOLUME 9.2 fl (7.4-10.4); MONOCYTE # 0.6 10^3/ul (0.3-0.9); MONOCYTES % 8.5 % (0.0-11.0); NEUTROPHIL # 4.8 10^3/ul (1.6-7.5); NEUTROPHILS % 64.7 % (39.0-77.0); PLATELET COUNT 316 10^3/UL (140-415); RED BLOOD COUNT 4.14 10^6/ul (4.20-5.40); RED CELL DISTRIBUTION WIDTH 15.4 % (11.5-14.5)
[2017-05-25 06:48] LABS: ALANINE AMINOTRANSFERASE 29 IU/L (13-69); ALBUMIN 3.7 g/dl (3.3-4.9); ALBUMIN/GLOBULIN RATIO 1.02; ALKALINE PHOSPHATASE 158 IU/L (42-121); ANION GAP 15 (8-16); ASPARTATE AMINO TRANSFERASE 30 IU/L (15-46); BILIRUBIN,INDIRECT 0.2 mg/dl (0-1.1); BILIRUBIN,TOTAL 0.2 mg/dl (0.2-1.3); BLOOD UREA NITROGEN 15 mg/dl (7-20); CALCIUM 9.8 mg/dl (8.4-10.2); CARBON DIOXIDE 38 mmol/L (21-31); CHLORIDE 95 mmol/L (97-110); CREATININE 1.29 mg/dl (0.44-1.00); GLUCOSE 110 mg/dl (70-220); INR 2.76; POTASSIUM 4.3 mmol/L (3.5-5.1); PT RATIO 2.3; SODIUM 144 mmol/L (135-144); TOTAL PROTEIN 7.3 g/dl (6.1-8.1)
[2017-05-25] MEDS: VILAZODONE 20 MG PO (09:02)
[2017-05-25] MEDS: PANTOPRAZOLE (EC) 40 MG TAB PO (09:02)
[2017-05-25] MEDS: SENNA/DOCUSATE NA (8.6MG/50MG) TAB PO ×2 (09:02→21:21)
[2017-05-25] MEDS: PAROXETINE 20 MG TAB PO (09:02)
[2017-05-25] MEDS: METOPROLOL 25 MG TAB PO ×2 (09:02→21:22)
[2017-05-25] MEDS: ACETAMINOPHEN 500 MG TAB PO ×2 (09:59→17:55)
[2017-05-25] MEDS: METHADONE (1 MG/ML 5 ML PO UD SYG) PO ×2 (13:26→21:23)
[2017-05-25] MEDS ORDERED: METHADONE (1 MG/ML 5 ML PO UD SYG) PO (14:00)
[2017-05-25] MEDS: WARFARIN 2 MG TAB PO (17:21)
[2017-05-26] MEDS: oxyCODONE 5 MG TAB PO ×3 (01:19→17:33)
[2017-05-26] MEDS: METHADONE (1 MG/ML 5 ML PO UD SYG) PO ×3 (06:36→21:16)
[2017-05-26] MEDS: FUROSEMIDE 40 MG TAB PO ×2 (06:37→17:34)
[2017-05-26] MEDS: MAGNESIUM HYDROXIDE 30ML CUP PO ×2 (06:37→17:34)
[2017-05-26] MEDS: ONDANSETRON 4 MG INJ IV ×3 (06:37→21:15)
[2017-05-26 07:38] LABS: ADD MAN DIFF? NO
[2017-05-26 07:40] LABS: WHITE BLOOD COUNT 7.9 10^3/ul (4.8-10.8)
[2017-05-26 07:40] LABS: BASOPHIL # 0.1 10^3/ul (0.0-0.1); BASOPHILS % 0.6 % (0.0-2.0); EOSINOPHILS # 0.1 10^3/ul (0.0-0.5); EOSINOPHILS % 1.5 % (0.0-7.0); HEMATOCRIT 34.6 % (37.0-47.0); HEMOGLOBIN 11.1 g/dl (12.0-16.0); LYMPHOCYTES # 1.3 10^3/ul (0.8-2.9); LYMPHOCYTES % 16.9 % (15.0-51.0); MEAN CORPUSCULAR HEMOGLOBIN 26.3 pg (29.0-33.0); MEAN CORPUSCULAR HGB CONC 32.1 g/dl (32.0-37.0); MEAN PLATELET VOLUME 9.3 fl (7.4-10.4); MONOCYTE # 0.6 10^3/ul (0.3-0.9); MONOCYTES % 7.1 % (0.0-11.0); NEUTROPHIL # 5.8 10^3/ul (1.6-7.5); NEUTROPHILS % 73.5 % (39.0-77.0); PLATELET COUNT 314 10^3/UL (140-415); RED BLOOD COUNT 4.22 10^6/ul (4.20-5.40); RED CELL DISTRIBUTION WIDTH 15.3 % (11.5-14.5)
[2017-05-26 08:04] LABS: INR 3.46; PROTIME 35.9 Sec (11.9-14.9); PT RATIO 2.8
[2017-05-26 08:10] LABS: ALBUMIN 3.6 g/dl (3.3-4.9); ANION GAP 12 (8-16); BLOOD UREA NITROGEN 17 mg/dl (7-20); CALCIUM 9.6 mg/dl (8.4-10.2); CARBON DIOXIDE 37 mmol/L (21-31); CHLORIDE 95 mmol/L (97-110); CREATININE 1.23 mg/dl (0.44-1.00); GLUCOSE 135 mg/dl (70-220); PHOSPHORUS 3.8 mg/dl (2.5-4.9); POTASSIUM 3.8 mmol/L (3.5-5.1); SODIUM 140 mmol/L (135-144)
[2017-05-26] MEDS: PANTOPRAZOLE (EC) 40 MG TAB PO (08:36)
[2017-05-26] MEDS: SENNA/DOCUSATE NA (8.6MG/50MG) TAB PO ×2 (08:36→21:15)
[2017-05-26] MEDS: METOPROLOL 25 MG TAB PO ×2 (08:37→21:15)
[2017-05-26] MEDS: VILAZODONE 20 MG PO (08:37)
[2017-05-26] MEDS: PAROXETINE 20 MG TAB PO (08:37)
[2017-05-27] MEDS: oxyCODONE 5 MG TAB PO ×2 (04:12→11:55)
[2017-05-27 06:41] LABS: ADD MAN DIFF? NO
[2017-05-27 06:44] LABS: BASOPHIL # 0.1 10^3/ul (0.0-0.1); BASOPHILS % 0.6 % (0.0-2.0); EOSINOPHILS # 0.1 10^3/ul (0.0-0.5); EOSINOPHILS % 0.7 % (0.0-7.0); HEMATOCRIT 31.9 % (37.0-47.0); LYMPHOCYTES # 1.5 10^3/ul (0.8-2.9); MEAN CORPUSCULAR HEMOGLOBIN 26.2 pg (29.0-33.0); MEAN CORPUSCULAR HGB CONC 31.3 g/dl (32.0-37.0); MEAN CORPUSCULAR VOLUME 83.7 fl (82.0-101.0); MEAN PLATELET VOLUME 9.2 fl (7.4-10.4); MONOCYTE # 0.7 10^3/ul (0.3-0.9); MONOCYTES % 8.3 % (0.0-11.0); NEUTROPHIL # 5.9 10^3/ul (1.6-7.5); NEUTROPHILS % 71.8 % (39.0-77.0); PLATELET COUNT 299 10^3/UL (140-415); RED BLOOD COUNT 3.81 10^6/ul (4.20-5.40); RED CELL DISTRIBUTION WIDTH 15.3 % (11.5-14.5)
[2017-05-27 06:44] LABS: WHITE BLOOD COUNT 8.2 10^3/ul (4.8-10.8)
[2017-05-27] MEDS: ONDANSETRON 4 MG INJ IV ×3 (06:45→14:32)
[2017-05-27] MEDS: METHADONE (1 MG/ML 5 ML PO UD SYG) PO ×2 (06:45→14:32)
[2017-05-27] MEDS: FUROSEMIDE 40 MG TAB PO (06:45)
[2017-05-27 07:06] LABS: ANION GAP 11 (8-16); INR 3.21; PROTIME 33.8 Sec (11.9-14.9); PT RATIO 2.6
[2017-05-27 07:27] LABS: ALBUMIN 3.4 g/dl (3.3-4.9); BLOOD UREA NITROGEN 18 mg/dl (7-20); CALCIUM 9.5 mg/dl (8.4-10.2); CARBON DIOXIDE 37 mmol/L (21-31); CHLORIDE 97 mmol/L (97-110); CREATININE 1.02 mg/dl (0.44-1.00); GLUCOSE 114 mg/dl (70-220); MAGNESIUM 2.3 mg/dl (1.7-2.5); PHOSPHORUS 3.4 mg/dl (2.5-4.9); SODIUM 141 mmol/L (135-144)
[2017-05-27] MEDS: VILAZODONE 20 MG PO (09:12)
[2017-05-27] MEDS: SENNA/DOCUSATE NA (8.6MG/50MG) TAB PO (09:13)
[2017-05-27] MEDS: PAROXETINE 20 MG TAB PO (09:13)
[2017-05-27] MEDS: PANTOPRAZOLE (EC) 40 MG TAB PO (09:13)
[2017-05-27] MEDS: METOPROLOL 25 MG TAB PO (09:13)
== END 2017-05-27 16:50 | disposition home or self-care (01) | DRG 189 ==
LOC: MS4 20:31 → E/R 11:47 → MS4 15:54
DX: J96.00 Acute respiratory failure, unspecified whether with hypoxia or hypercapnia (principal); C34.90 Malignant neoplasm of unspecified part of unspecified bronchus or lung; D68.2 Hereditary deficiency of other clotting factors; C78.7 Secondary malignant neoplasm of liver and intrahepatic bile duct; I42.1 Obstructive hypertrophic cardiomyopathy; R60.1 Generalized edema; Z66 Do not resuscitate; Z79.01 Long term (current) use of anticoagulants; R79.1 Abnormal coagulation profile; G89.29 Other chronic pain; F41.9 Anxiety disorder, unspecified; M54.9 Dorsalgia, unspecified; R60.9 Edema, unspecified; R10.11 Right upper quadrant pain
CPT/HCPCS: 36415; 71045; 80048; 80053; 80069; 81001; 82150; 83605; 83690; 83735; 83880; 84484; 85025; 85610; 85730; 87040; 87081; 87086; 93005; 93306; 94664; 96374; 96375; 97110; 97163; 99291-25